=== PATIENT | male | born 1965 | race Caucasian/White ===

== ENCOUNTER 2024-03-27 18:43 | Observation (INO) | payer OTHER ==
[~2024-03-27 18:43] MED LIST: Acetaminophen 325 MG TAB PO PRN; Lorazepam 1 MG TAB ONE; Lorazepam 1 MG TAB PO SCH; hydrALAZINE 20 MG/ML VIAL SLOW IVP PRN
[2024-03-28 02:18] VITALS: BMI 25.9
[2024-03-28 07:35] LABS: #Basophils 0.07 10x3/uL (0.0-0.2); #Eosinophils 0.41 10x3/uL (0.0-0.5); #Monocytes 1.09 10x3/uL (0.0-1.1); #Neutrophils 5.27 10x3/uL (1.5-8.4); %Basophils 0.8 % (0.0-2.0); %Eosinophils 4.6 % (0.0-6.0); %Lymphocytes 23.8 % (18.0-47.0); %Monocytes 12.1 % (0.0-10.0); %Neutrophils 58.4 % (40.0-75.0); Hematocrit 39.9 % (38.8-50.0); Hemoglobin 13.5 g/dL (13.5-17.5); Mean Corpuscular HGB CONC 33.8 g/dL (32.0-36.0); Mean Corpuscular Volume 91.5 fL (81.2-95.1); Mean Platelet Volume 9.4 fL (7.4-10.4); Platelet Count 434 10x3/uL (150-450); Red Blood Cell (RBC) Count 4.36 10x6/uL (4.32-5.72)
[2024-03-28] MEDS ORDERED: Ondansetron ODT 4 MG TAB PO PRN (07:42)
[2024-03-28 07:48] LABS: Anion Gap 12 mmol/L (10-20); BUN (Urea Nitrogen) 11 mg/dL (8.4-25.7); Calc. Creatinine Clearance 101 mL/min (70-130); Calcium 8.8 mg/dL (7.8-10.44); Carbon Dioxide 23 mmol/L (22-29); Cardiac Risk 3.2 (Less than 4.5); Chloride 110 mmol/L (98-107); Cholesterol 111 mg/dl (< 200 Desired); Estimated GFR 102; Glucose 100 mg/dL (70-105); HDL Cholesterol 35 mg/dL (>60 Neg Risk); LDL Cholesterol, Calculated 62 mg/dL; Potassium 4.2 mmol/L (3.5-5.1); Sodium 141 mmol/L (136-145); Triglycerides 72 mg/dL (Less than 150)
[2024-03-28] MEDS ORDERED: Aspirin 81 mg Enteric Coated Tablet PO SCH (09:00)
[2024-03-28] MEDS ORDERED: Pantoprazole DR 40 MG TAB PO SCH (09:00)
[2024-03-28] MEDS ORDERED: Enoxaparin 40 MG (0.4 mL) SYRINGE SC SCH (09:00)
[2024-03-28] MEDS ORDERED: Clopidogrel Bisulfate 75 MG TAB PO SCH (09:00)
[2024-03-28 10:44] LABS: Amphetamine Not Detected (NotDetected); Barbiturates Screen Not Detected (NotDetected); Benzodiazepine Screen Detected (NotDetected); Cocaine Metabolite Screen Not Detected (NotDetected); Methadone Not Detected (NotDetected); Methamphetamine Not Detected (NotDetected); Opiate Screen Not Detected (NotDetected); Oxycodone Screen Not Detected (NotDetected); Phencyclidine (PCP) Not Detected (NotDetected); THC/Cannabinoid Screen Not Detected (NotDetected); Tricyclic Screen Not Detected (NotDetected)
[2024-03-28] MEDS ORDERED: Lorazepam 1 MG TAB PO SCH (16:15)
[2024-03-28 16:25] LABS: Hemoglobin A1c 5.5 % (4.0-6.0)
[2024-03-28 16:37] VITALS: BP 127/87; TEMP 98.2
[2024-03-28] MEDS: Atorvastatin Calcium 40 MG TAB PO SCH (21:02)
[2024-03-28] MEDS: Gabapentin 300 MG CAP PO SCH (21:03)
[2024-03-28] MEDS: Cyclobenzaprine 10 MG TAB PO PRN (21:06)
== END 2024-03-28 21:40 | disposition home or self-care (01) ==
LOC: INTOOBSV 18:43 → CSHTELE 18:43
PROVIDERS: ADMIT Internal Medicine; ATTEND Internal Medicine
PROC: B24BZZZ Ultrasonography of Heart with Aorta (ICD-10-PCS; principal; 2024-03-28)
DX: R29.810 Facial weakness (principal); I25.10 Atherosclerotic heart disease of native coronary artery without angina pectoris; K21.9 Gastro-esophageal reflux disease without esophagitis; Z95.5 Presence of coronary angioplasty implant and graft; Z86.73 Personal history of transient ischemic attack (TIA), and cerebral infarction without residual deficits; Z87.891 Personal history of nicotine dependence; Z79.82 Long term (current) use of aspirin; Z79.02 Long term (current) use of antithrombotics/antiplatelets; Z79.899 Other long term (current) drug therapy
CPT/HCPCS: 36415; 70551; 80048; 80061; 80306; 83036; 85025; 93306; G0378